=== PATIENT | male | born 1940 | race Caucasian/White ===

== ENCOUNTER → 2019-02-16 | Outpatient (CLI) | payer MEDICARE, SELFPAY | PROVIDERS: Family Provider Family Medicine; Visit Provider Urology | DX: N20.0 Calculus of kidney (principal) | CPT/HCPCS: 74018 ==

== ENCOUNTER → 2019-04-06 11:27 | Outpatient (BNVA) | payer MEDICARE, SELFPAY | PROVIDERS: Family Provider Family Medicine; PCP Family Medicine; Visit Provider Urology | DX: N13.8 Other obstructive and reflux uropathy (principal); N40.1 Benign prostatic hyperplasia with lower urinary tract symptoms; Z87.440 Personal history of urinary (tract) infections; N21.0 Calculus in bladder; R33.9 Retention of urine, unspecified; N32.3 Diverticulum of bladder; N20.0 Calculus of kidney | CPT/HCPCS: 81001; 87077; 87086; 87186 ==

== ENCOUNTER 2019-04-23 12:51 | Day surgery (SDC) | payer MEDICARE, SELFPAY ==
[2019-04-23] VITALS (9 sets, daily range): BP systolic 148–173; BP diastolic 76–109; PULSE 56–77; RESP 14–20; TEMP 36.1–36.3; O2SAT 92–99
[2019-04-23] MEDS: sodium chloride 0.9% 1,000 ML 30 ML IV (13:34)
[2019-04-23 13:39] LABS: Glucose Point of Care 131 mg/dL (70-110)
--- NOTE | 2019-04-23 14:01 | P.ANESASSM_ITS ---
Pre-Anesthetic Assessment Pre-Anesthetic Assessment: Height/Weight: Height 1.78 m Weight 83.007 kg Temp Pulse Resp BP Pulse Ox 97.3 F L 77 18 157/98 97 04/23/19 13:17 04/23/19 13:17 04/23/19 13:17 04/23/19 13:17 04/23/19 13:17 Preop Diagnosis: Cystolithiasis Proposed Procedure: Operation Date: 04/23/19 14:10 Proposed Procedures p Cystolitholapaxy 95539 N21.0(Not Applicable) - Rio Shi MD Last intake: Intake Last Liquid Date 04/22/19 Last Liquid Time 17:00 Last Solid Date 04/22/19 Last Solid Time 17:00 Social: Social History: Tobacco Packs per day: 1 Pack years: 6 Comment: quit >50 years ago Exam: Pre-Anes Outpt Exam: alert, oriented x 3, clear to auscultation bilaterally and regular rate & rhythm Additional Exam Findings (including a raj of procedure): Date 04/22/2019 [facility] Airway: Submandibular: WNL Cervical ROM: WNL MP: 1 Dentition: Caps : Comments: BPH with urinary retention Metabolic: Metabolic: DM and Thyroid Comments: rx'd 5y, does not follow replacement 40y without recent change Anesthetic Plan: ASA status: 3 Anesthesia: General Meds/Allergies Current Medications: Current Medications Generic Name Dose Route Start Last Admin Trade Name Freq PRN Reason Stop Dose Admin Sodium Chloride 1,000 mls @ 30 ml s/hr 04/23/19 13:15 04/23/19 13:34 Sodium Chloride 0.9% IV 04/24/19 13:14 30 mls/hr .Q24H FABRIZIO Administration PFSH Anesthesia PFSH: Social History Smoking and tobacco status: former smoker Alcohol intake: never Adopted: No Lives independently: No Marital status: Single Current occupational status: retired History of recent travel: No Current gender identity: Male Data Anesthesia Other Labs: Laboratory Results - last 48 hr 04/23/19 13:36 POC Glucose 131 Cardiac Studies: No Data to Display
--- NOTE | 2019-04-23 14:38 | W.PM.OPSUD ---
Surgery/Procedure H&P Update DATE OF PROCEDURE: April 23, 2019 DATE H&P PERFORMED: 04/06/19 H&P UPDATE INFORMATION: I have reviewed H&P completed within last 30 days and No changes to prior documentation PREOP DIAGNOSIS: Cystolithiasis PLANNED PROCEDURE: Operation Date: 04/23/19 14:10 Proposed Procedures p Cystolitholapaxy 12982 N21.0(Not Applicable) - Rio Shi MD
--- NOTE | 2019-04-23 14:39 | P.OP_ITS ---
Operative Report Date of procedure: April 23, 2019 Pre-op Diagnosis: Cystolithiasis Post-op diagnosis: same Procedure Done: Cystolitholapaxy >2.5 cm Specimens removed/disposition: Bladder stone fragments Pathology: Bladder stone fragments Surgeon: Yuridia Anesthesia: General Complications: None Condition: stable Disposition: PACU Brief History: Mr. Garcia is a 79-year-old white male recently diagnosed with urinary retention, recurrent urinary tract infections and with discovery of cystolithiasis and a large left renal staghorn calculus. Asymptomatic from a staghorn calculus perspective but did have chronic bladder outlet obstructive symptoms and irritative voiding. Given age and other health problems it was decided to try to make his bladder stone free and improve voiding dynamics and then reassess later to determine whether to treat the staghorn calculus. Has been on self clean intermittent catheterization checked it as a PVR. We will work with the long-term and try to get that information and if he is emptying well then stop SCIC and try and sterilize urine if possible. Procedure: After routine preoperative evaluation examination and obtaining of informed consent he was taken to the operating suite on 04/23/2019 where general anesthesia was administered without difficulty after appropriate timeout was performed, SCDs confirmed to be functioning, preoperative antibiotics administered, beta-twaana protocol confirmed. Prepped and draped in the usual sterile fashion in dorsolithotomy position pain careful attention to avoiding pressure points. 21 [place] cystoscope with 30 degree lens was introduced into the Riether meatus and advanced into the bladder under videoscopy. Bladder was systematically examined. The stone was identified. The 550 ?m homing laser fiber was utilized to fragment the stone. Fragments were completely cleared from the bladder with an Ellik evacuator. Bladder wall was inspected and confirmed to be intact with no significant mucosal injury. Hemostasis was visually confirmed. Procedure completed. Because of his chronic urinary retention it was decided to leave a short-term Christine catheter in place. Plan will be to remove the catheter tomorrow or early next week. Tolerated the procedure well without complications and was awakened in the operating room and returned to the recovery room in stable condition.
[2019-04-23] MEDS: levofloxacin-dextrose 5 % 500 MG/100 ML PREMIX 100 MG IV (14:47)
--- NOTE | 2019-04-23 16:03 | SUR.PHASEI ---
1601 PATIENT TO PACU AT THIS TIME. RR EVEN AND UNLABORED. DENIES PAIN. WARE SECURED TO LEFT LEG. HARRELL COLORED URINE NOTED.
--- NOTE | 2019-04-23 16:26 | SUR.PHASEI ---
1623 PATIENT TO OPS AT THIS TIME. NO PAIN. WARE DRAINING HARRELL COLORED URINE.
--- NOTE | 2019-04-23 18:12 | PC.NURSE ---
Pt and anesthesiologist and critical care provided with dinner from cafeteria because they had a long drive home. PT discharged to caregiver at 1750.. His caregiver requested that i leave the patterson bag in place since they had a one hour drive home. She took the leg bags, RX and instructions with her. i also faxed RX to a pharmacy of her request.
--- NOTE | 2019-04-23 18:17 | PC.NURSE ---
pharmacy was [facility]
[2019-04-28 11:52] LABS: Stone Source BLADDER STONES
== END 2019-04-23 17:50 | disposition skilled nursing facility (03) ==
PROVIDERS: Family Provider Family Medicine; PCP Family Medicine; Visit Provider Urology
PROC: 0TCB8ZZ Extirpation of Matter from Bladder, Via Natural or Artificial Opening Endoscopic (ICD-10-PCS; CPT 52318; principal; 2019-04-23 14:10)
DX: N21.0 Calculus in bladder (principal); Z87.891 Personal history of nicotine dependence; N40.1 Benign prostatic hyperplasia with lower urinary tract symptoms; R33.8 Other retention of urine; E11.9 Type 2 diabetes mellitus without complications; Z79.84 Long term (current) use of oral hypoglycemic drugs; E03.9 Hypothyroidism, unspecified; Z82.49 Family history of ischemic heart disease and other diseases of the circulatory system; Z83.3 Family history of diabetes mellitus
CPT/HCPCS: 52318; 12345; 36416; 82365; 82962; 88300; J1956; J2001; J2405; J2704; J2765; J7030

== ENCOUNTER 2019-07-31 09:24 | Outpatient (CLI) | payer MEDICARE, SELFPAY ==
--- NOTE | 2019-07-31 09:15 | XR_ITS ---
WS: [id number] ABDOMEN: SUPINE FILM HISTORY: RENAL STONE COMPARISON: 02/16/2019 Moderate amount of increased air throughout the GI tract. There is marked blastic changes throughout the spine and pelvis. Right kidney: No renal or ureteral stone identified. Left kidney: There is a large staghorn calculus measuring 9.7 x 8.3 cm in the LEFT renal pelvis which is unchanged. Previously described calcification in the pelvis which may have been a bladder calcification is no lo nger evident. XR/XR KUB [id number] IMPRESSION: 1. Large LEFT staghorn calculus is unchanged. 2. Bladder calcification is no longer identified. 3. 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
== END 2019-07-31 09:25 | disposition home or self-care (01) ==
LOC: RAD 09:28
PROVIDERS: PCP Family Medicine; Visit Provider Urology
DX: N20.0 Calculus of kidney (principal); N13.8 Other obstructive and reflux uropathy; N40.1 Benign prostatic hyperplasia with lower urinary tract symptoms; R97.20 Elevated prostate specific antigen [PSA]
CPT/HCPCS: 74018; 84153